=== PATIENT | male | born 1990 | race Caucasian/White ===

== ENCOUNTER 2018-06-28 08:19 | Emergency (ER) | payer BC ==
[2018-06-28 08:51] VITALS: BP 117/62
--- NOTE | 2018-06-28 10:05 | UC ---
Lower Extremity/Ankle HPI - HPI Summary HPI Summary: 28-year-old male comes in with a chief complaint of foreign bodies in his left foot. I week ago he [place] and he struck his left heel on something under the water is not sure exactly what. He had pain right away but it was not excessive. He also had some bleeding. Bleeding stopped with direct pressure. It's Worse than when the scab came off he still noticed some dark matter underneath the skin. It's mildly tender when he pushes on it. There is no drainage now is no erythema. No fevers feels well otherwise. - History of Current Complaint Chief Complaint: U[employer]ignBody Stated Complaint: FB IN FOOT Time Seen by Provider: 06/28/18 09:55 Pain Intensity: 2 - Allergies/Home Medications Allergies/Adverse Reactions: Allergies Allergy/AdvReac Type Severity Reaction Status Date / Time No Known Allergies Allergy Verified 06/28/18 08:51 PMH/Surg Hx/FS Hx/Imm Hx Previously Healthy: Yes - Surgical History Surgical History: None - Family History Known Family History: Positive: None - Social History Alcohol Use: Occasionally Substance Use Type: None Smoking Status (MU): Never Smoked Tobacco Review of Systems All Other Systems Reviewed And Are Negative: Yes Constitutional: Positive: Negative Skin: Positive: Other - SEE HPI Eyes: Positive: Negative ENT: Positive: Negative Respiratory: Positive: Negative Cardiovascular: Positive: Negative Gastrointestinal: Positive: Negative Motor: Positive: Negative Neurovascular: Positive: Negative Musculoskeletal: Positive: Negative Neurological: Positive: Negative Psychological: Positive: Negative Is Patient Immunocompromised?: No Physical Exam Triage Information Reviewed: Yes Appearance: Well-Appearing, No Pain Distress, Well-Nourished Vital Signs: Initial Vital Signs Temp 97.9 F 06/28/18 08:46 Pulse 69 06/28/18 08:46 Resp 16 06/28/18 08:46 BP 117/62 06/28/18 08:46 Pulse Ox 98 06/28/18 08:46 Vital Signs Reviewed: Yes Eye Exam: Normal Eyes: Positive: Conjunctiva Clear Neck exam: Normal Neck: Positive: Supple Respiratory: Positive: No respiratory distress Musculoskeletal Exam: Normal Musculoskeletal: Positive: Strength Intact, ROM Intact Neurological Exam: Normal Neurological: Positive: Alert, Muscle Tone Normal Psychological Exam: Normal Psychological: Positive: Age Appropriate Behavior Skin: Positive: Other - The left heel has several 2-3 mm dark spots underneath the skin it's mildly raised. Minimal erythema. No streaking. No pus. Lower Extremity Course/Dx - Course Course Of Treatment: We discussed the x-ray reports no foreign body seen on x- rays. The site does not appear infected at this time. We discussed numbing the area with lidocaine and attempted to extract the foreign bodies versus waiting and watching with follow-up with dermatology if it continues to bother him and returning here if things get worse. Patient prefers to wait and watch at this time. I did send him his prescription of Keflex to be used if is any signs of infection. If there are any signs of infection he needs to get reevaluated right away. - Differential Dx/Diagnosis Provider Diagnosis: Foreign body in foot, left Discharge - Sign-Out/Discharge Documenting (check all that apply): Patient Departure All imaging exams completed and their final reports reviewed: Yes - Discharge Plan Condition: Stable Disposition: HOME Prescriptions: Cephalexin CAP* [Keflex CAP*] 500 mg PO QID #40 cap Patient Education Materials: Soft Tissue Foreign Body (ED) Referrals: Cb Zuniga MD [Primary Care Provider] - Royal Denton MD [Medical Doctor] - Kamryn Waterman [Medical Doctor] - Additional Instructions: FOLLOW UP WITH DERMATOLOGY IF NOT COMPLETELY IMPROVED. GET RECHECKED SOONER HERE FOR ANY WORSENING OF YOUR CONDITION; PAIN, SIGNS OF INFECTION OR QUESTIONS OR CONCERNS. - Billing Disposition and Condition Condition: STABLE Disposition: Home
== END 2018-06-28 10:00 | disposition home or self-care (01) ==
LOC: UCEAST 08:19
DX: S90.852A Superficial foreign body, left foot, initial encounter (principal); W22.8XXA Striking against or struck by other objects, initial encounter; Y93.11 Activity, swimming; Y92.832 Beach as the place of occurrence of the external cause
CPT/HCPCS: 99212; G0463